=== PATIENT | female | born 1990 | race Hispanic/Latino ===

== ENCOUNTER 2024-03-27 18:32 | Emergency (ER) | payer SELFPAY ==
[~2024-03-27] VITALS: Ht 160 cm; Wt 72.6 kg
[~2024-03-27 18:32] MED LIST: IBUP-2070 PO
--- NOTE | 2024-03-27 18:47 | NUR ---
PT JUST PLACED IN MY ED BED 19
--- NOTE | 2024-03-27 19:27 | HMCIMG ---
PORTABLE CHEST RADIOGRAPH INDICATION: cough/congestion/fever r/o pna COMPARISON: None FINDINGS: Heart size is normal. The pulmonary vascularity and phillip appear normal. No abnormal pulmonary parenchymal opacity or consolidation identified. No significant pleural effusion noted. No pneumothorax detected. IMPRESSION: No radiographic evidence for any acute cardiopulmonary process.
[2024-03-27 19:33] VITALS: BP 112/67; PULSE 78; RESP 18; TEMP 98.6; O2SAT 100
[2024-03-27 20:38] LABS: RAPID GROUP A STREP negative (NEGATIVE)
[2024-03-27 20:40] LABS: SARS-CoV-2, RNA, NAAT NEGATIVE SARS CoV-2 (NEGATIVE)
[2024-03-27 20:48] LABS: INFLUENZA TYPE A Negative For Type A (NEGATIVE); INFLUENZA TYPE B Negative For Type B (NEGATIVE)
[2024-03-27] MEDS ORDERED: METH4TAB3 PO (20:52)
[2024-03-27] MEDS ORDERED: BENZ-39 PO (20:52)
[2024-03-27] MEDS ORDERED: AZIT250T9 PO (20:52)
--- NOTE | 2024-03-27 20:53 | ERN ---
General Chief Complaint: Shortness of Breath Stated Complaint: COUGH Time Seen by MD: 18:38 Time Seen by Midlevel: 18:38 History of Present Illness Initial Comments Patient is a 33-year-old female with no significant past medical history presenting to the emergency department for evaluation of cough and shortness for breath that has been ongoing for the last week. She reports sick contacts at work. Denies any other symptoms at this time. Allergies: Coded Allergies: No Known Drug Allergies (Verified Allergy, 12/14/11) Home Meds Reported Medications Ibuprofen (Ibuprofen) 600 Mg Tablet, 600 MG PO Q6H PRN for PAIN, #30 TAB 01/01/16 Past Medical History Past Medical History: No Pertinent History Past Surgical History: None Female( History) LMP: Feb 28, 2024 ROS Dictation CONSTITUTIONAL: Negative except for HPI HEAD/FACE: Negative except for HPI EENT: Negative except for HPI RESPIRATORY: Negative except for HPI GASTROINTESTINAL/ABDOMINAL: Negative except for HPI GENITOURINARY: Negative except for HPI MUSCULOSKELETAL: Negative except for HPI INTEGUMENTARY: Negative except for HPI NEUROLOGICAL/PSYCH: Negative except for HPI HEMATOLOGIC/LYMPHATIC: Negative except for HPI All Systems Negative, Except as noted above. 13 point review of systems assessed and all negative except for above. Physical Exam Physical Exam Dictation Vital Signs reviewed General Appearance: Alert, oriented x 3, no acute distress, well developed, nourished. Head and Face: non-traumatic. Eyes: PERRL, pink conjunctivas, eyelid no trauma, anterior chamber with arcus senilis. Ears: Pinnas intact and no signs of trauma or erythema ear canals clear and no discharge TM no erythema Nose: No discharge, no bleeding. Oropharynx: Mouth normal, tongue pink, pharynx clear,no erythema, tonsils no exudates, no abscesses noted, mucous membrane moist Neck: Supple, non-tender, no thyromegaly, no masses, no JVD, no bruits Breast:Deferred Chest:No tenderness, no crepitus, no paradoxical movement, no retractions Lungs:Clear, well-ventilated, symmetric, no rales, no wheezing, no rhonchi, no stridor, good breath sounds bilaterally Heart: Regular rate, regular rhythm, no murmur, no gallops Vascular: no peripheral edema, Abdomen: Soft, positive bowel sounds, nondistended, no guarding, nontender, no rebound, no masses no hepatomegaly, no splenomegaly, no Barboza's sign, no hernias. Rectal: Deferred Genital: Deferred Neurological: Normal speech, motor function intact, sensory function intact Musculoskeletal: Neck nontender, full range of motion, back nontender, full range of motion, Extremities: nontender, full range of motion Skin: Color pink, dry, no turgor, no rash, no lacerations, no abrasions, no contusions. Lymphatic: Deferred Results Laboratory and Microbiology Lab and Micro Result Laboratory Tests Test 03/27/24 18:50 Influenza Type A Antigen Negative For Type A Influenza Type B Antigen Negative For Type B SARS-CoV-2, RNA, NAAT NEGATIVE SARS CoV-2 Group A Streptococcus Rapid negative (NEGATIVE) Labs Reviewed?: Yes MDM MDM: Differential diagnosis: Pneumonia, viral syndrome, acute bronchitis, pneumonitis There are no social concerns with this patient. Prescription drug management Prescriptions will include: Azithromycin, Medrol pack, Tessalon Perles Medical management and examination interpretation discussions were had by me with other qualified healthcare professionals as indicated for the patient's care. ED Course Orders Procedure Category Date Status Time Covid Rna Naat LAB 03/27/24 Complete 18:46 Influenza Type A & B, LAB 03/27/24 Complete Rapid 18:46 Rapid (Group A Strep) LAB 03/27/24 Complete 18:46 Chest 1vw RAD 03/27/24 Resulted 18:46 Vital Signs Date Time Temp Pulse Resp B/P (MAP) Pulse Ox O2 Delivery O2 Flow Rate FiO2 03/27/24 19:33 98.6 78 18 112/67 100 Room Air* 0 21 03/27/24 18:34 99.0 93 20 126/85 100 Room Air 0 DX & DISP Disposition: Discharge Departure Impression: Primary Impression: Pneumonitis Condition: Stable Scripts Benzonatate (Tessalon Perles) 100 Mg Cap 100 MG PO TID for cough for 10 Days, #30 CAP 0 Refills Prov: MIKE DENTON 03/27/24 Methylprednisolone (Medrol) 4 Mg Tab.ds.pk 1 TAB PO AD for 6 Days, #21 TAB 0 Refills 6 on day 1 then reduce by one tablet daily until gone Prov: MIKE DENTON 03/27/24 Azithromycin (Azithromycin) 250 Mg Tablet 1 TAB PO AD for 5 Days, #6 TAB 0 Refills 2 the first day followed by 1 for days 2-5 Prov: MIKE DENTON 03/27/24 Referrals: SELF,REFERRAL (PCP) Time of Disposition: 20:51 I have reviewed the case, and I agree with, Diagnosis and Plan I performed the substantive portion of the visit. I have reviewed and person ally made and approve the management plan that is documented in the note by myself or the MARIBETH. I acknowledge for responsibility for the patient's management plan. MIKE DENTON Mar 27, 2024 20:53
== END 2024-03-27 21:03 | disposition home or self-care (01) ==
LOC: EDH 18:32
DX: J98.4 Other disorders of lung (principal); Z20.822 Contact with and (suspected) exposure to COVID-19; Z79.899 Other long term (current) drug therapy
CPT/HCPCS: 71045; 87635; 87804; 87880; 99284